=== PATIENT | female | born 2000 | race Caucasian/White ===

== ENCOUNTER 2024-06-23 18:14 | Emergency (ER) | payer OTHER, SELFPAY ==
--- NOTE | ~2024-06-23 | XR_ITS ---
CLINICAL HISTORY: chest pain 2 view chest x-ray Comparison: None Findings: No consolidation or effusion. Heart size is normal. No acute fracture. IMPRESSION: 1. No acute findings. This document has been electronically signed by: Cristin Kate MD on 06/23/2024 20:19:24
[2024-06-23 18:37] VITALS: BP 123/74; PULSE 65; RESP 18; TEMP 36.5; O2SAT 100; BMI 44.8
--- NOTE | 2024-06-23 18:37 | ED_ITS ---
HPI - General Adult General Chief complaint: Upper Respiratory Symptoms Stated complaint: flu symptoms Time Seen by Provider: 06/23/24 22:42 Source: patient Limitations: no limitations History of Present Illness ED Provider: Nahomy Reynolds PA-C HPI narrative: 24-year-old female with a history of asthma presents with cough and cold symptoms for weeks. Patient states her symptoms have progressed over the past few days. Associated subjective fever, chills, dizziness, headache, dry repetitive cough with wheeze and nasal congestion. Patient denies sick contacts with similar symptoms. Related Data Previous Rx's ?Medication ?Instructions ?Recorded albuterol sulfate 90 mcg/actuation 2 puff inhalation Q4-6H PRN 06/24/24 aerosol inhaler shortness of breath or wheezing #8.5 grams prednisone 20 mg tablet 40 mg (2 x 20 mg) PO DAILY #8 tabs 06/24/24 Allergies Allergy/AdvReac Type Severity Reaction Status Date / Time No Known Allergies Allergy Verified 06/23/24 18:39 Review of Systems 2 Review of Systems: Yes all other systems are reviewed and are negative Constitutional: Constitutional: Reports chills, Reports fatigue and Reports fever(s) ENT: Reports nasal congestion Cardiovascular: Cardiovascular: Reports chest pain and Reports dyspnea Respiratory: Respiratory: Reports cough, Reports dyspnea and Reports wheezing Endocrine: Endocrine: Reports fatigue Allergic/Immunologic: Allergic/Immunologic: Reports wheezing PMFSH Past Medical History Attestation statement: The following information was validated with the patient. Social History Social History Smoked in Last 30 Days: No Use of substances other than those prescribed or required for medical reasons: No Advance Directives: No Advance Directives Information Provided: No Do you have a plan to hurt others: No Plan Patient : No Physical Exam ED Vital Signs: Vital Signs - 24 hr 06/23/24 18:37 06/23/24 23:03 06/23/24 23:04 Temperature 97.7 F 98.3 F Pulse Rate 65 48 L 49 L Respiratory Rate 18 16 22 H Blood Pressure 123/74 136/97 H Pulse Oximetry 100 99 Oxygen Delivery Method Room Air Room Air BMI result Body Mass Index 44.8 Const Other: Alert Orientation/consciousness: patient oriented x3 Resp Other: Expiratory wheezes noted posterior pascal Cardio Other: Normal peripheral perfusion Skin Other: Warm dry no rash Neuro General: patient oriented x3, no focal motor deficits and CN's II-XI intact bilaterally Psych Other: Calm cooperative Course Course Course Narrative: RME performed by Jami Richter PA-C. Patient is a 24 year old assigned female at presenting to the emergency department with a cough and chest tightness. Detailed physical exam and review of systems are deferred to the day treatment clinician/art therapist. EKG, labs, imaging, and swabs ordered. Patient placed back in the waiting room pending room availability and results. Reevaluation(s) Reevaluation #1: Wheezing resolved after a neb Medications Administered Discontinued Medications Generic Name Dose Route Start Last Admin Trade Name Freq PRN Reason Stop Dose Admin Albuterol Sulfate 2.5 mg/ 0 mg 06/23/24 23:04 06/23/24 23:08 Albuterol/Ipratropium 3 ml INHALE 06/23/24 23:05 1 dose ONCE ONE Administration Prednisone 40 mg 06/23/24 22:58 06/23/24 23:44 Prednisone 20 Mg Tablet PO 06/23/24 22:59 40 mg ONCE ONE Administration Medical Decision Making Medical Decision Making [facility] Narrative: 24-year-old female with a history of asthma presents with cough and cold symptoms for weeks. Patient states her symptoms have progressed over the past few days. Associated subjective fever, chills, dizziness, headache, dry repetitive cough with wheeze and nasal congestion. Patient denies sick contacts with similar symptoms. Problem: Asthma History: Per patient I have considered the following differential diagnoses: Asthma exacerbation, viral syndrome, bronchitis, pneumonia Plan: Patient here with numerous complaints that are viral related. Screening labs including viral panel and chest x-ray were obtained from triage. Thus far everything is negative. We will treat the patient for an asthma exacerbation. Not abuse tobacco, she is not around any smokers, she does not require antibiotic therapy for a secondary bronchitis. I have independently reviewed the following tests: Labs: No leukocytosis, not anemic, viral panel negative, trop negative EKG: Normal sinus rhythm, rate 55, no ischemic changes no ectopy Chest x-ray:indings: No consolidation or effusion. Heart size is normal. No acute fracture. IMPRESSION: 1. No acute findings. This document has been electronically signed by: Cristin Kate MD on 06/23/2024 20:19:24 Lab Data 06/23/24 18:55 06/23/24 18:55 Labs: Lab Results 06/23/24 06/23/24 Range/Units 18:55 23:07 WBC 8.9 (4.8-10.8) X10*3/uL RBC 4.59 (4.20-5.50) X10*6/uL Hgb 13.3 (12.0-16.0) g/dl Hct 40.3 (37.0-47.0) % MCV 87.8 (80.0-98.0) fL MCH 29.0 (27.0-33.0) pg MCHC 33.0 (31.0-35.0) g/dl RDW 13.0 (11.0-16.0) % Plt Count 171 (160-400) X10*3/uL MPV 12.7 H (9.4-12.3) fL Immature Gran % (Auto) 0.3 (0.0-0.4) % Neut % (Auto) 68.2 (45-73) % Lymph % (Auto) 24.1 (20-40) % [place] % (Auto) 4.7 (2-11) % Eos % (Auto) 2.4 (0-4) % Baso % (Auto) 0.3 (0-2) % Lymph # (Auto) 2.2 (1.2-4.9) X10*3/uL [place] # (Auto) 0.4 (0.1-1.2) X10*3/uL Eos # (Auto) 0.2 (0.0-0.4) X10*3/uL Baso # (Auto) 0.0 (0.0-0.2) X10*3/uL Abs Immat Gran (auto) 0.03 (0.00-0.03) X10*3/uL Absolute Neuts (auto) 6.1 (2.0-8.3) x10*3/uL Absolute Nucleated RBC 0.000 (0.0-0.012) X10*3/uL Nucleated RBC % (auto) 0.0 (0.0-0.2) /100WBC Sodium 137 (135-145) mmol/L Potassium 3.7 (3.3-5.1) mmol/L Chloride 110 H (96-108) mmol/L Carbon Dioxide 23 (22-29) mmol/L Anion Gap 8 L (12-20) BUN 9 (9-16) mg/dL Creatinine 0.75 (0.5-1.4) mg/dL Estim Creat Clear Calc 134.8 Estimated GFR > 60 Random Glucose 92 (60-115) mg/dL Calcium 8.7 (8.4-10.2) mg/dL Magnesium 2.1 (1.6-2.6) mg/dL Total Bilirubin 0.3 (0.0-1.0) mg/dL AST 18 (5-31) U/L ALT 23 (0-31) U/L Alkaline Phosphatase 86 (39-117) U/L Troponin I High Sens 3.5 2.8 (<3.5-17.0) ng/L Total Protein 8.0 (6.5-8.0) g/dL Albumin 4.2 (3.5-5.0) g/dL Beta HCG, Quant < 2 mIU/mL Urine Color Yellow Urine Appearance Clear Urine pH 6.0 (5.0-9.0) Ur Specific [place] <= 1.005 (1.005-1.025) Urine Protein Negative (Neg-Trace) mg/dL Urine Glucose (UA) Negative (Negative) mg/dL Urine Ketones Negative (Negative) mg/dL Urine Blood Negative (Negative) Urine Nitrite Negative (Negative) Ur Leukocyte Esterase Trace H (Negative) Urine RBC 0-2 (0-2) /HPF Urine WBC 0-5 (0-5) /HPF Ur Squamous Epith Cells 3-5 (0-2) /HPF Urine Bacteria Trace (None Seen) Hyaline Casts 0-2 (0-2) /LPF Influenza Type A (PCR) NEGATIVE (Negative) Influenza Type B (PCR) NEGATIVE (Negative) RSV RNA Qual (PCR) NEGATIVE (Negative) SARS-CoV-2 RNA (RT-PCR) NEGATIVE (Negative) Discharge Plan Discharge Clinical Impression: Viral infection, Asthma exacerbation Patient Disposition: Home, Self-Care Instructions: Asthma (ED), Viral Syndrome (ED) Additional Instructions: You are being treated for an asthma exacerbation induced by an underlying respiratory virus. See home care instructions. All of your screening labs including a viral panel were negative, you do not have pneumonia on your chest x-ray was clear. Use the albuterol as directed. Take the steroid as directed. Follow up with your primary care provider next week as needed. Prescriptions: New albuterol sulfate 90 mcg/actuation HFA aerosol inhaler 2 puff inhalation Q4-6H PRN (Reason: shortness of breath or wheezing) Qty: 8.5 0RF prednisone 20 mg tablet 40 mg PO DAILY Qty: 8 0RF Print Language: Burkinan
--- NOTE | 2024-06-23 18:38 | ECG_ITS ---
Test Reason : CHEST PAIN Blood Pressure : */* mmHG Vent. Rate : 55 BPM Atrial Rate : 55 BPM P-R Int : 130 ms QRS Dur : 86 ms QT Int : 412 ms P-R-T Axes : 37 33 22 degrees QTcB Int : 394 ms Sinus bradycardia Otherwise normal ECG No previous ECGs available Referred By: Jami Richter Electronically Signed By: LEORA MARAVILLA
[2024-06-23 18:59] LABS: MANUAL DIFF FLAG NO
[2024-06-23 19:04] LABS: Appearance Urine Clear; Color Urine Yellow; Glucose Urine UA Negative (Negative); Leukocyte Esterase Urine Trace (Negative); Nitrite Urine Negative (Negative); Specific Gravity - Urine <= 1.005 (1.005-1.025); UMIC TRIGGER UACC YES; Urine Blood Negative (Negative); Urine Ketones Negative (Negative); Urine Protein Negative (Neg-Trace)
[2024-06-23 19:06] LABS: Basophils Percent Auto 0.3 % (0-2); Eosinophils Absolute Auto 0.2 X10*3/uL (0.0-0.4); Eosinophils Percent Auto 2.4 % (0-4); Hematocrit 40.3 % (37.0-47.0); Hemoglobin 13.3 g/dl (12.0-16.0); Imm Gran Abs Auto 0.03 X10*3/uL (0.00-0.03); Imm Gran Pct Auto 0.3 % (0.0-0.4); Lymphocytes Absolute Auto 2.2 X10*3/uL (1.2-4.9); Lymphocytes Percent Auto 24.1 % (20-40); Mean Corpuscular Volume 87.8 fL (80.0-98.0); Mean Platelet Volume 12.7 fL (9.4-12.3); Monocytes Absolute Auto 0.4 X10*3/uL (0.1-1.2); Monocytes Percent Auto 4.7 % (2-11); Neutrophils Absolute Auto 6.1 x10*3/uL (2.0-8.3); Neutrophils Percent Auto 68.2 % (45-73); Platelet Count 171 X10*3/uL (160-400); Red Blood Count 4.59 X10*6/uL (4.20-5.50); White Blood Count 8.9 X10*3/uL (4.8-10.8)
[2024-06-23 19:09] LABS: Bacteria Urine Trace (None Seen); Hyaline Casts Urine 0-2 /LPF (0-2); RBC Urine 0-2 /HPF (0-2); WBC Urine 0-5 /HPF (0-5)
[2024-06-23 19:23] LABS: Alanine Aminotransferase 23 U/L (0-31); Albumin Level 4.2 g/dL (3.5-5.0); Alkaline Phosphatase 86 U/L (39-117); Anion Gap 8 (12-20); Aspartate Amino Transferase 18 U/L (5-31); Bilirubin Total 0.3 mg/dL (0.0-1.0); Blood Urea Nitrogen 9 mg/dL (9-16); Calcium 8.7 mg/dL (8.4-10.2); Carbon Dioxide 23 mmol/L (22-29); Chloride 110 mmol/L (96-108); Creatinine Clr Calc Pharmacy 134.8; Estimated Glomerular Filt Rate > 60; Glucose Random 92 mg/dL (60-115); Magnesium 2.1 mg/dL (1.6-2.6); Potassium 3.7 mmol/L (3.3-5.1); Sodium 137 mmol/L (135-145)
[2024-06-23 19:24] LABS: Troponin-I High Sensitivity 3.5 ng/L (<3.5-17.0)
[2024-06-23 19:25] LABS: HCG Quantitative < 2 mIU/mL
[2024-06-23 19:40] LABS: Influenza A PCR NEGATIVE (Negative); Influenza B PCR NEGATIVE (Negative); Resp Syncy Virus RNA Qual PCR NEGATIVE (Negative); SARS COV2 PCR INHOUSE NEGATIVE (Negative)
[2024-06-23 23:03] VITALS: BP 136/97; PULSE 48; RESP 16; TEMP 36.8; O2SAT 99
[2024-06-23 23:04] VITALS: PULSE 49; RESP 22; O2SAT 100
[2024-06-23] MEDS: Albuterol Sulfate 2.5 MG, Albuterol/Iprat 2.5/0.5MG 3 ML 3 ML INHALE (23:08)
--- NOTE | 2024-06-23 23:08 | MHC.EDTECH ---
This pct assumed care of Patient at 2230 ,Trop drawn and sent to lab ,vitals taken .
[2024-06-23 23:32] LABS: Troponin-I High Sensitivity 2.8 ng/L (<3.5-17.0)
[2024-06-23] MEDS: predniSONE 20 MG TABLET 40 MG PO (23:44)
[2024-06-24 00:53] VITALS: BP 136/97; PULSE 49; RESP 22; TEMP 36.8; O2SAT 98
== END 2024-06-24 00:30 | disposition home or self-care (01) ==
PROVIDERS: Physician Assistant Medical; Emergency Provider Emergency Medicine
DX: B34.9 Viral infection, unspecified (principal); J45.901 Unspecified asthma with (acute) exacerbation; Z03.818 Encounter for observation for suspected exposure to other biological agents ruled out
CPT/HCPCS: 0241U; 36415; 71046; 80053; 81001; 81003; 83735; 84484; 84702; 85025; 93005; 99284; 99285

== ENCOUNTER → 2024-06-23 18:38 | Outpatient (BNV) | payer MEDICAID, SELFPAY | PROVIDERS: Visit Provider Student in an Organized Health Care Education/Training Program | DX: R07.9 Chest pain, unspecified (principal) | CPT/HCPCS: 71046 ==

== ENCOUNTER → 2024-06-23 18:38 | Outpatient (BNV) | payer OTHER, SELFPAY | PROVIDERS: Emergency Provider Emergency Medicine; Visit Provider Internal Medicine | DX: R00.1 Bradycardia, unspecified (principal) | CPT/HCPCS: 93010 ==

== ENCOUNTER 2024-08-12 15:20 | Emergency (ER) | payer OTHER, SELFPAY ==
--- NOTE | ~2024-08-12 | XR_ITS ---
CLINICAL HISTORY: pain 4 view left knee Comparison: None Findings: No fractures or dislocations. No significant loss of joint space, osteophytes, or erosions. No joint effusion. No radiopaque foreign body. IMPRESSION: 1. No acute findings. This document has been electronically signed by: Doug Hinojosa MD on 08/12/2024 19:39:32
--- NOTE | ~2024-08-12 | XR_ITS ---
CLINICAL HISTORY: pain 1 view chest x-ray Comparison: CR - XR CHEST 2V - 06/23/24 19:03 EST Findings: No consolidation or effusion. Normal size heart. No acute fracture. IMPRESSION: 1. No acute findings. This document has been electronically signed by: Rocio Diamond MD on 08/12/2024 18:33:16
--- NOTE | 2024-08-12 15:23 | ECG_ITS ---
Test Reason : cp Blood Pressure : */* mmHG Vent. Rate : 75 BPM Atrial Rate : 75 BPM P-R Int : 122 ms QRS Dur : 80 ms QT Int : 374 ms P-R-T Axes : 35 49 30 degrees QTcB Int : 417 ms Normal sinus rhythm with sinus arrhythmia Normal ECG When compared with ECG of 23-Jun-2024 18:47, No significant change was found Referred By: Generic ED Physician Electronically Signed By: Vinnie Coulter
[2024-08-12 15:37] VITALS: BP 138/92; PULSE 73; RESP 20; TEMP 36.2; O2SAT 98; BMI 40.9
--- NOTE | 2024-08-12 15:41 | ED_ITS ---
HPI - General Adult General Chief complaint: Chest Pain Stated complaint: R sided chest pain/R arm feels heavy Time Seen by Provider: 08/12/24 18:51 Source: patient Mode of arrival: ambulatory Limitations: no limitations History of Present Illness ED Provider: DR. Naylor HPI narrative: 24-year-old female came in for multiple complaints assessment. Right-sided chest pain that has been constant for 4 days, no radiation, no clear aggravating factor, no clear relieving factor, no other associated symptoms, no SOB, no recent travel, no lower extremity swelling or tenderness, no family history of heart disease at young age, no sudden runs in the family, no history of PE or DVT. No trauma or injury to the chest. Patient also is complaining of left knee pain that is been on and off many years, no recent trauma to the knee, patient is able to ambulate fine in the emergency department. Complaining of many years epigastric burning pain that worsening with food, no nausea, no vomiting, normal bowel movement, no blood in the stool. Patient was supposed to have upper endoscopy but I did not make the appointment. Currently not taking PPI or medication for her stomach. Related Data Previous Rx's ?Medication ?Instructions ?Recorded albuterol sulfate 90 mcg/actuation 2 puff inhalation Q4-6H PRN 06/24/24 aerosol inhaler shortness of breath or wheezing #8.5 grams prednisone 20 mg tablet 40 mg (2 x 20 mg) PO DAILY #8 tabs 06/24/24 omeprazole 40 mg capsule,delayed 40 mg PO DAILY #14 caps 08/12/24 release Allergies Allergy/AdvReac Type Severity Reaction Status Date / Time No Known Allergies Allergy Verified 08/12/24 15:42 Review of Systems 2 Review of Systems: All other systems are reviewed and are negative Constitutional: Reports as per HPI and Reports no additional constitutional complaints Eyes: Reports as per HPI and Reports no additional eye complaints Reports system reviewed and no additional complaints, except as documented Cardiovascular: Reports as per HPI and Reports no additional cardiovascular complaints Respiratory: Reports as per HPI and Reports no additional respiratory complaints Gastrointestinal: Reports as per HPI and Reports no additional gastrointestinal complaints Genitourinary: Reports no additional female genitourinary complaints Musculoskeletal: Reports no additional musculoskeletal complaints Skin/Breast: Reports system reviewed and no additional complaints, except as docu Psychiatric: Reports no additional psychiatric complaints Endocrine: Reports no additional endocrine complaints Hematologic/Lymphatic: Reports no additional hematologic/lymphatic complaints Allergic/Immunologic: Reports no additional allergic/immunologic complaints Reports system reviewed and no additional complaints, except as documented and Reports Abnormal speech present ON LICENSE OF [facility] Social History Social History Advance Directives: No Advance Directives Information Provided: No Do you have a plan to hurt others: No Plan Physical Exam ED Vital Signs: Vital Signs - 24 hr 08/12/24 15:37 08/12/24 19:21 Temperature 97.1 F 98.4 F Pulse Rate 73 59 Respiratory Rate 20 16 Blood Pressure 138/92 H 107/57 L Pulse Oximetry 98 97 Oxygen Delivery Method Room Air Room Air BMI result Body Mass Index 40.9 Vital signs have been reviewed and appear to be correct. Blood pressure elevated. Heart rate normal. Respiratory rate normal. Temperature normal. Oxygen saturation normal. Appearance: Alert. Oriented X3. No acute distress. Head: Normal external exam. Normocephalic. Atraumatic. No Nevarez signs noted. No raccoon eyes noted Eyes: PERRLA. EOMI. Conjunctiva and sclera normal. Eyelids normal. ENT: TM's Normal. Pharynx normal. Uvula midline. Moist mucous membranes. No trismus noted. No drooling noted. No muffled voice noted. Neck: Normal inspection. Neck supple. FROM. No adenopathy. Thyroid Normal. No meningeal signs. No neck mass noted. CVS: Normal heart rate and rhythm. Heart sound normal. No murmurs noted. Pulses normal throughout. Respiratory: No respiratory distress. Painless inspiration. Breath sounds normal. No wheezes/rales/rhonchi noted. Right-sided chest pain to palpation, deformity, no step-off. No accessory muscle usage noted or decreased air movement noted. Abdomen: Soft and nontender. Bowel sounds normal in all 4 quadrants. No distention noted. No organomegaly noted. No visible injury noted. Back: No CVA tenderness. Full range of motion noted. Skin: Skin warm and dry. Normal skin color. Normal skin turgor. No rashes/lesions/lacerations noted. Extremities: No lower extremity edema. Extremities exhibit normal range of motion. Extremities nontender. Neuro: Oriented X 3. Cranial nerve exam: II-XII are grossly intact No motor deficit. No sensory deficit. Reflexes normal. Course Course Course Narrative: This is a rapid medical exam performed by Nahomy Reynolds PA-C. The patient is a 24-year-old female with self reported hx of anxiety, bipolar, prediabetes, morbid obesity who presents with right-sided chest pain x3 days. Pain worse with movement and palpation of chest wall, the pain radiates to the arm. On exam the pain is reproducible with palpation. We will be screening basic labs, cardiac enzymes EKG and chest x-ray. The patient was stable and can return to the waiting room pending her full medical assessment. Reevaluation(s) Reevaluation #1: 24-year-old female came in with right-sided chest pain radiating to the right arm for 4 days, negative workup for ACS or pulmonary embolism, physical exam is consistent with chest wall pain. GERD patient was supposed to have upper endoscopy but she did not keep the appointment will will refer to GI clinic. Medical Decision Making Differential Diagnosis Differential Diagnoses: The differential diagnosis associated with the presentation includes ( ACS, pulmonary embolism, pleural effusion, pneumonia, left knee fracture, left knee strain , chest wall strain, GERD, gastritis.) Admission/Observation Consideration of admission/observation: Escalation of care including admission/observation considered Lab Data MDM Lab Attestation statement: I reviewed the patient's lab results. 08/12/24 15:45 08/12/24 15:45 Labs: Lab Results 08/12/24 08/12/24 Range/Units 15:45 19:26 WBC 10.9 H (4.8-10.8) X10*3/uL RBC 5.05 (4.20-5.50) X10*6/uL Hgb 14.6 (12.0-16.0) g/dl Hct 44.0 (37.0-47.0) % MCV 87.1 (80.0-98.0) fL MCH 28.9 (27.0-33.0) pg MCHC 33.2 (31.0-35.0) g/dl RDW 13.0 (11.0-16.0) % Plt Count 191 (160-400) X10*3/uL MPV 12.3 (9.4-12.3) fL Immature Gran % (Auto) 0.5 H (0.0-0.4) % Neut % (Auto) 72.0 (45-73) % Lymph % (Auto) 19.7 L (20-40) % [place] % (Auto) 5.6 (2-11) % Eos % (Auto) 1.6 (0-4) % Baso % (Auto) 0.6 (0-2) % Lymph # (Auto) 2.1 (1.2-4.9) X10*3/uL [place] # (Auto) 0.6 (0.1-1.2) X10*3/uL Eos # (Auto) 0.2 (0.0-0.4) X10*3/uL Baso # (Auto) 0.1 (0.0-0.2) X10*3/uL Abs Immat Gran (auto) 0.05 H (0.00-0.03) X10*3/uL Absolute Neuts (auto) 7.8 (2.0-8.3) x10*3/uL Absolute Nucleated RBC 0.000 (0.0-0.012) X10*3/uL Nucleated RBC % (auto) 0.0 (0.0-0.2) /100WBC D-Dimer High Sensitivty < 150 NG/ML Sodium 141 (135-145) mmol/L Potassium 4.3 (3.3-5.1) mmol/L Chloride 107 (96-108) mmol/L Carbon Dioxide 26 (22-29) mmol/L Anion Gap 12 (12-20) BUN 11 (9-16) mg/dL Creatinine 0.76 (0.5-1.4) mg/dL Estim Creat Clear Calc 131.0 Estimated GFR > 60 Random Glucose 96 (60-115) mg/dL Calcium 10.2 D (8.4-10.2) mg/dL Magnesium 2.3 (1.6-2.6) mg/dL Total Bilirubin 0.4 (0.0-1.0) mg/dL AST 28 (5-31) U/L ALT 38 H (0-31) U/L Alkaline Phosphatase 107 (39-117) U/L Troponin I High Sens < 2.7 < 2.7 (<3.5-17.0) ng/L Total Protein 9.1 H (6.5-8.0) g/dL Albumin 4.6 (3.5-5.0) g/dL Lipase 13 (8-78) U/L Beta HCG, Quant < 2 mIU/mL Independent Interpretation I performed an independent interpretation of an: Plain X-Ray ( Chest: Left knee: No acute findings.) Radiology Impression Discussion of test interpretation with radiology: I have reviewed the radiologist's reading. Discharge Plan Discharge Clinical Impression: Chest wall pain, Gastritis, Knee pain, left Patient Disposition: Still a Patient Instructions: Chest Wall Pain (ED) Prescriptions: New omeprazole 40 mg capsule,delayed release(DR/EC) 40 mg PO DAILY Qty: 14 0RF No Action albuterol sulfate 90 mcg/actuation HFA aerosol inhaler 2 puff inhalation Q4-6H PRN (Reason: shortness of breath or wheezing) Qty: 8.5 0RF prednisone 20 mg tablet 40 mg PO DAILY Qty: 8 0RF Referrals: Aleshia Ng MD [Physician] - Print Language: Iraqi
[2024-08-12 15:57] LABS: MANUAL DIFF FLAG NO
[2024-08-12 15:59] LABS: Basophils Absolute Auto 0.1 X10*3/uL (0.0-0.2); Basophils Percent Auto 0.6 % (0-2); Eosinophils Absolute Auto 0.2 X10*3/uL (0.0-0.4); Eosinophils Percent Auto 1.6 % (0-4); Hemoglobin 14.6 g/dl (12.0-16.0); Imm Gran Abs Auto 0.05 X10*3/uL (0.00-0.03); Imm Gran Pct Auto 0.5 % (0.0-0.4); Lymphocytes Absolute Auto 2.1 X10*3/uL (1.2-4.9); Lymphocytes Percent Auto 19.7 % (20-40); Mean Corpuscular HGB Conc 33.2 g/dl (31.0-35.0); Mean Corpuscular Hemoglobin 28.9 pg (27.0-33.0); Mean Corpuscular Volume 87.1 fL (80.0-98.0); Mean Platelet Volume 12.3 fL (9.4-12.3); Monocytes Absolute Auto 0.6 X10*3/uL (0.1-1.2); Monocytes Percent Auto 5.6 % (2-11); Neutrophils Absolute Auto 7.8 x10*3/uL (2.0-8.3); Platelet Count 191 X10*3/uL (160-400); Red Blood Count 5.05 X10*6/uL (4.20-5.50); White Blood Count 10.9 X10*3/uL (4.8-10.8)
[2024-08-12 16:19] LABS: Alanine Aminotransferase 38 U/L (0-31); Albumin Level 4.6 g/dL (3.5-5.0); Alkaline Phosphatase 107 U/L (39-117); Anion Gap 12 (12-20); Aspartate Amino Transferase 28 U/L (5-31); Bilirubin Total 0.4 mg/dL (0.0-1.0); Blood Urea Nitrogen 11 mg/dL (9-16); Calcium 10.2 mg/dL (8.4-10.2); Carbon Dioxide 26 mmol/L (22-29); Chloride 107 mmol/L (96-108); Estimated Glomerular Filt Rate > 60; Glucose Random 96 mg/dL (60-115); Lipase 13 U/L (8-78); Magnesium 2.3 mg/dL (1.6-2.6); Potassium 4.3 mmol/L (3.3-5.1); Sodium 141 mmol/L (135-145); Total Protein 9.1 g/dL (6.5-8.0)
[2024-08-12 16:20] LABS: Troponin-I High Sensitivity < 2.7 ng/L (<3.5-17.0)
[2024-08-12 16:21] LABS: HCG Quantitative < 2 mIU/mL
[2024-08-12 19:21] VITALS: BP 107/57; PULSE 59; RESP 16; TEMP 36.9; O2SAT 97
--- NOTE | 2024-08-12 19:28 | MHC.EDTECH ---
This pct assumed care of Patient at 1900 ,vitals taken ,Blood drawn and sent to lab .Call godoy within Pt reach .
[2024-08-12 19:53] LABS: Troponin-I High Sensitivity < 2.7 ng/L (<3.5-17.0)
[2024-08-12 20:13] LABS: D Dimer High Sensitivity < 150 NG/ML
[2024-08-12] MEDS: Ibuprofen 600 MG TABLET PO (20:47)
[2024-08-12 20:54] VITALS: BP 107/57; PULSE 59; RESP 16; TEMP 36.9; O2SAT 97
== END 2024-08-12 20:56 | disposition home or self-care (01) ==
PROVIDERS: Physician Assistant Medical; Emergency Provider Emergency Medicine
DX: R07.9 Chest pain, unspecified (principal); M25.562 Pain in left knee; K29.70 Gastritis, unspecified, without bleeding
CPT/HCPCS: 36415; 71045; 73564; 80053; 83690; 83735; 84484; 84702; 85025; 85379; 93005; 99283; 99285

== ENCOUNTER → 2024-08-12 15:23 | Outpatient (BNV) | payer OTHER, MEDICAID, SELFPAY | PROVIDERS: Emergency Provider Emergency Medicine; Visit Provider Internal Medicine Cardiovascular Disease | DX: R07.9 Chest pain, unspecified (principal) | CPT/HCPCS: 93010 ==

== ENCOUNTER → 2024-08-12 15:41 | Outpatient (BNV) | payer MEDICAID, SELFPAY | PROVIDERS: Visit Provider Radiology Diagnostic Radiology | DX: M25.562 Pain in left knee (principal); R07.9 Chest pain, unspecified | CPT/HCPCS: 71045; 73564 ==

== ENCOUNTER 2024-10-20 15:25 | Emergency (ER) | payer OTHER, SELFPAY ==
[2024-10-20] VITALS (10 sets, daily range): BP systolic 98–131; BP diastolic 50–77; PULSE 67–92; RESP 18–21; TEMP 36.6–37.9; O2SAT 98–100; BMI 36.6
--- NOTE | ~2024-10-20 | CT_ITS ---
CLINICAL HISTORY: Left CVA tenderness? pyelo CT abdomen and pelvis with contrast Comparison: None Findings: The lung bases are clear. Hepatomegaly with steatosis. Splenomegaly. Mildly distended gallbladder. Striated nephrograms in the left kidney concerning for pyelonephritis. No urolithiasis or hydronephrosis. Minimal wall thickening and enhancement along the left renal pelvis can be seen with infection. No bowel obstruction, pneumoperitoneum, or pneumatosis. Scattered colonic diverticulosis without diverticulitis or colitis. Normal appendix. Circumferential bladder wall thickening. Bilateral adnexal cysts. The bones are intact. IMPRESSION: 1. Striated nephrograms in the left kidney concerning for pyelonephritis. 2. Suspect cystitis. This document has been electronically signed by: Geraldo Lincoln MD on 10/20/2024 20:18:44
--- NOTE | ~2024-10-20 | XR_ITS ---
CLINICAL HISTORY: fever 2 view chest x-ray Comparison: CR - XR CHEST 1V - 08/12/24 17:34 EDT Findings: The lungs are clear. Normal size heart. No acute fracture. IMPRESSION: 1. No acute findings. This document has been electronically signed by: Geraldo Lincoln MD on 10/20/2024 20:12:06
--- NOTE | 2024-10-20 15:28 | ECG_ITS ---
Test Reason : CHEST PAIN Blood Pressure : */* mmHG Vent. Rate : 90 BPM Atrial Rate : 90 BPM P-R Int : 118 ms QRS Dur : 80 ms QT Int : 348 ms P-R-T Axes : 52 51 33 degrees QTcB Int : 425 ms Normal sinus rhythm Normal ECG When compared with ECG of 12-Aug-2024 15:23, No significant change was found Referred By: Alessio Escalera Electronically Signed By: Vinnie Coulter
--- NOTE | 2024-10-20 15:37 | ED_ITS ---
HPI - General Adult General Chief complaint: Arrhythmia/Palpitations Stated complaint: rapid heart beat, passing out, SOB Time Seen by Provider: 10/20/24 18:30 History of Present Illness ED Provider: Anaid TILLMAN narrative: The patient is a 24-year-old female who says that 3 days ago on Sunday she was making lasagna when she had a low episode. This seemed to come out of the blue. She says that she felt somewhat unwell over the weekend and had nausea and did not eat very much. Today she had another syncopal episode when she was in the shower. She says she did not injure herself during either of the syncopal episodes. She says that she also has some left-sided abdominal pain that radiates to her groin and some pain in her left lower back. She has not had any dysuria but she may have had some urinary frequency and urgency. She says that she did not feel well over the weekend and not take much by mouth. She says that she has had an occasional cough. When she coughs she feels some pain in the back of her head. Here in the emergency room she was found to have a temperature of 100.3 degrees. She says that she does not think that she had a fever prior to being here. Related Data Previous Rx's ?Medication ?Instructions ?Recorded albuterol sulfate 90 mcg/actuation 2 puff inhalation Q4-6H PRN 06/24/24 aerosol inhaler shortness of breath or wheezing #8.5 grams prednisone 20 mg tablet 40 mg (2 x 20 mg) PO DAILY #8 tabs 06/24/24 omeprazole 40 mg capsule,delayed 40 mg PO DAILY #14 caps 08/12/24 release cefpodoxime 200 mg tablet 200 mg PO BID 10 days #20 tabs 10/20/24 ibuprofen 400 mg tablet 400 mg PO Q6H PRN pain #14 tabs 10/20/24 ondansetron 4 mg disintegrating 4 mg PO Q6H PRN nausea and 10/20/24 tablet vomiting #10 tabs Allergies Allergy/AdvReac Type Severity Reaction Status Date / Time No Known Allergies Allergy Verified 10/20/24 15:38 Review of Systems 2 Review of Systems: Yes all other systems are reviewed and are negative Physical Exam ED Vital Signs: Vital Signs - 24 hr 10/20/24 15:32 10/20/24 16:07 10/20/24 18:09 Temperature 98 F 98.4 F Pulse Rate 92 84 80 Respiratory Rate 18 21 H Blood Pressure 120/77 131/75 98/50 L Pulse Oximetry 98 98 Oxygen Delivery Method Room Air Room Air 10/20/24 18:11 10/20/24 18:13 10/20/24 18:29 Temperature 100.3 F Pulse Rate 79 87 83 Respiratory Rate 20 Blood Pressure 115/71 124/74 124/74 Pulse Oximetry 100 Oxygen Delivery Method Room Air 10/20/24 19:54 10/20/24 22:25 10/20/24 23:02 Temperature 98.5 F 98.4 F 98.4 F Pulse Rate 67 68 68 Respiratory Rate 18 20 20 Blood Pressure 107/61 107/61 107/61 Pulse Oximetry 98 100 100 Oxygen Delivery Method Room Air Room Air Room Air BMI result Body Mass Index 36.6 Const Other: The patient is awake and alert with a normal mental status. She looks mildly unwell but not in acute distress. HENMT Other: Face is symmetrical, mucous membranes moist. Eyes General: appearance normal, both eyes and all related structures Neck Neck: Yes normal visual inspection and Yes full ROM Resp Effort & Inspection: normal respiratory effort Auscultation: clear to auscultation bilaterally Cardio Rate: regular rate Rhythm: regular rhythm Heart sounds: S1 normal heart sound present and S2 normal heart sound present GI Other: There was some generalized left-sided abdominal tenderness. No right-sided abdominal tenderness. Back/Spine/Pelvis Other: There was left-sided CVA percussion tenderness. Skin Other: Skin felt warm and dry. Neuro Other: The with a normal mental status. Cranial nerves are grossly intact. She moves her extremities symmetrically and appropriately. Extrem Other: No peripheral edema Course Course Course Narrative: RME, this is a rapid medical exam performed by Robe Escalera please refer to primary provider for complete H&P- 24 year old female presents for evaluation of headache, cough, and palpitations. She reports 2 syncopal episodes. Plan for cardiac workup Medications Administered Discontinued Medications Generic Name Dose Route Start Last Admin Trade Name Freq PRN Reason Stop Dose Admin Acetaminophen 975 mg 10/20/24 18:40 10/20/24 18:56 Acetaminophen 325 Mg Tablet PO 10/20/24 18:41 975 mg ONCE ONE Administration Ceftriaxone Sodium 1 gm 10/20/24 18:38 10/20/24 19:16 Ceftriaxone Sodium 1 Gm Vial IVPUSH 10/20/24 18:39 1 gm ONCE ONE Administration Ceftriaxone Sodium 1 gm 10/20/24 22:04 10/20/24 22:13 Ceftriaxone Sodium 1 Gm Vial IVPUSH 10/20/24 22:05 1 gm ONCE ONE Administration Sodium Chloride 1,000 mls @ 999 mls/hr 10/20/24 20:00 10/20/24 20:59 Ns IV 10/20/24 21:00 Infused .Q1H1M RONEN Infusion Sodium Chloride 1,000 mls @ 999 mls/hr 10/20/24 20:00 10/20/24 20:59 Ns IV 10/20/24 21:00 Infused .Q1H1M RONEN Infusion Lactated Ringer's 1,000 mls @ 999 mls/hr 10/20/24 21:45 10/20/24 23:01 Lr IV 10/20/24 22:45 Infused .Q1H1M RONEN Infusion Iohexol 100 ml 10/20/24 19:07 10/20/24 19:07 Iohexol 350 Mg/Ml 100 Ml Infus..Btl IV 10/20/24 19:08 85 ml ONCE ONE Administration Ketorolac Tromethamine 10 mg 10/20/24 18:40 10/20/24 18:53 Ketorolac Tromethamine 15 Mg/Ml Vial IVPUSH 10/20/24 18:41 10 mg ONCE ONE Administration Ondansetron HCl 4 mg 10/20/24 19:21 10/20/24 19:28 Ondansetron Hcl 4 Mg/2 Ml Vial IVPUSH 10/20/24 19:22 4 mg ONCE ONE Administration Medical Decision Making Medical Decision Making MDM Narrative: The patient is a 24-year-old female who presents with syncopal episode at home and left flank pain. She has an abnormal urinalysis suggestive of a UTI. She percussion tenderness on the left side. A CT pelvis shows findings consistent with left-sided pyelonephritis. The patient was treated with IV ceftriaxone. She was also given ketorolac and acetaminophen. She was given 3 liters of IV crystalloid. She tolerated oral intake in the emergency department. The patient's vital signs improved so that her heart rate was in the 60s. Clinically she looked well and tolerated oral intake. Although I think the patient has a significant left-sided pyelonephritis she ultimately looked quite well. She has a small child with her. The patient and I spoke about whether she should be hospitalized or not. She was not able to make any arrangements for child development specialist. Since she looks as well as she does and since she has a received 2 g of ceftriaxone and 3 L of crystalloid and was tolerating oral intake I ultimately felt that trial of outpatient management would not be unreasonable. The patient feels well enough to try. She is relatively new in the area and does not have a primary care doctor. She was given contact information for a variety of PCP offices that she may reach out to to try to establish a primary care doctor. Otherwise she will be discharged with a were cefpodoxime 200 mg b.i.d. times 10 days. She will also be prescribed ondansetron and ibuprofen. If she is significantly worse at any time she should return to the emergency room. Lab Data 10/20/24 15:48 10/20/24 15:48 Labs: Lab Results 10/20/24 10/20/24 10/20/24 Range/Units 15:48 16:36 19:18 WBC 16.0 H (4.8-10.8) X10*3/uL RBC 4.65 (4.20-5.50) X10*6/uL Hgb 13.5 (12.0-16.0) g/dl Hct 38.9 (37.0-47.0) % MCV 83.7 (80.0-98.0) fL MCH 29.0 (27.0-33.0) pg MCHC 34.7 (31.0-35.0) g/dl RDW 13.4 (11.0-16.0) % Plt Count 146 L (160-400) X10*3/uL MPV 12.0 (9.4-12.3) fL Immature Gran % (Auto) 0.4 (0.0-0.4) % Neut % (Auto) 80.3 H (45-73) % Lymph % (Auto) 9.8 L (20-40) % Stephens % (Auto) 9.1 (2-11) % Eos % (Auto) 0.1 (0-4) % Baso % (Auto) 0.3 (0-2) % Lymph # (Auto) 1.6 (1.2-4.9) X10*3/uL Stephens # (Auto) 1.5 H (0.1-1.2) X10*3/uL Eos # (Auto) 0.0 (0.0-0.4) X10*3/uL Baso # (Auto) 0.0 (0.0-0.2) X10*3/uL Abs Immat Gran (auto) 0.06 H (0.00-0.03) X10*3/uL Absolute Neuts (auto) 12.8 H (2.0-8.3) x10*3/uL Absolute Nucleated RBC 0.000 (0.0-0.012) X10*3/uL Nucleated RBC % (auto) 0.0 (0.0-0.2) /100WBC Sodium 135 (135-145) mmol/L Potassium 3.9 (3.3-5.1) mmol/L Chloride 103 (96-108) mmol/L Carbon Dioxide 21 L (22-29) mmol/L Anion Gap 15 (12-20) BUN 11 (9-16) mg/dL Creatinine 0.76 (0.5-1.4) mg/dL Estim Creat Clear Calc 118.5 Estimated GFR > 60 POC Glucose 102 (60-115) mg/dL Random Glucose 104 (60-115) mg/dL Lactic Acid 0.8 (0.5-2.0) mmol/L Calcium 9.6 (8.4-10.2) mg/dL Total Bilirubin 0.8 (0.0-1.0) mg/dL AST 21 (5-31) U/L ALT 33 H (0-31) U/L Alkaline Phosphatase 86 (39-117) U/L Troponin I High Sens < 2.7 (<3.5-17.0) ng/L C-Reactive Protein 22.02 H (< or = 0.50) mg/dL Total Protein 8.5 H (6.5-8.0) g/dL Albumin 4.7 (3.5-5.0) g/dL Lipase 12 (8-78) U/L TSH 1.50 (0.32-4.0) uIU/mL Beta HCG, Quant < 2 mIU/mL Urine Color Dark Yellow Urine Appearance Clear Urine pH 6.0 (5.0-9.0) Ur Specific [place] 1.020 (1.005-1.025) Urine Protein 30 (1+) H (Neg-Trace) mg/dL Urine Glucose (UA) Negative (Negative) mg/dL Urine Ketones Trace (Negative) mg/dL Urine Blood Small (1+) H (Negative) Urine Nitrite Positive H (Negative) Ur Leukocyte Esterase Moderate (2+) H (Negative) Urine RBC 6-10 H (0-2) /HPF Urine WBC 21-50 H (0-5) /HPF Ur Squamous Epith Cells 6-10 (0-2) /HPF Urine Bacteria 3+ (None Seen) Hyaline Casts 0-2 (0-2) /LPF Influenza Type A (PCR) NEGATIVE (Negative) Influenza Type B (PCR) NEGATIVE (Negative) RSV RNA Qual (PCR) NEGATIVE (Negative) SARS-CoV-2 RNA (RT-PCR) NEGATIVE (Negative) Critical Care Time Critical Care Time Critical Care Time: Yes Total Critical Care Time: 35 Attestation: The patient was critically ill with a high probability of imminent or life- threatening deterioration. ?I spent greater than 30 minutes of discontinuous time evaluating the patient, delivering critical care at the bedside, discussing evaluating data with consultants. ?Critical care time does not include time spent performing separately billable procedures or teaching. ?Time spent performing critical care with 35 minutes. Discharge Plan Discharge Clinical Impression: Pyelonephritis of left kidney Patient Disposition: Home, Self-Care Instructions: Kidney Infection (ED) Additional Instructions: You have a urinary tract infection which has a affected your left kidney. This kind of kidney infection is called pyelonephritis. You received IV antibiotics here tomorrow. I have sent a prescription for additional oral antibiotics which you may start tomorrow. The antibiotics you have received or long-lasting. You should therefore start your oral antibiotics on Sunday evening. I have also sent a prescription for a nausea medication, ondansetron, which you may use if you feel significantly nauseated. Please do your best to drink lot of fluids and keep yourself well hydrated. We have included contact information for local primary care doctor offices so that you can try to establish a new primary care doctor. If you feel significantly worse at any time please return to the emergency room. Prescriptions: New cefpodoxime 200 mg tablet 200 mg PO BID 10 Days Qty: 20 0RF Rx Instructions: must administer with a meal/food ondansetron 4 mg tablet,disintegrating 4 mg PO Q6H PRN (Reason: nausea and vomiting) Qty: 10 0RF ibuprofen 400 mg tablet 400 mg PO Q6H PRN (Reason: pain) Qty: 14 0RF No Action omeprazole 40 mg capsule,delayed release(DR/EC) 40 mg PO DAILY Qty: 14 0RF albuterol sulfate 90 mcg/actuation HFA aerosol inhaler 2 puff inhalation Q4-6H PRN (Reason: shortness of breath or wheezing) Qty: 8.5 0RF prednisone 20 mg tablet 40 mg PO DAILY Qty: 8 0RF Referrals: [facility], [facility] [Provider Group] [facility] Primary Care, [facility] [Provider Group] Carey Farias MD [Physician] - Stand Alone Forms: Work/School Release Interventions: ED Discharge Assessment Last Done: 10/20/24 23:02 Discharge Date/Time: 10/20/24 23:04 Print Language: [place]
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
[2024-10-20 15:54] LABS: MANUAL DIFF FLAG NO
[2024-10-20 15:56] LABS: Basophils Percent Auto 0.3 % (0-2); Eosinophils Percent Auto 0.1 % (0-4); Hematocrit 38.9 % (37.0-47.0); Hemoglobin 13.5 g/dl (12.0-16.0); Imm Gran Abs Auto 0.06 X10*3/uL (0.00-0.03); Imm Gran Pct Auto 0.4 % (0.0-0.4); Lymphocytes Absolute Auto 1.6 X10*3/uL (1.2-4.9); Lymphocytes Percent Auto 9.8 % (20-40); Mean Corpuscular HGB Conc 34.7 g/dl (31.0-35.0); Mean Corpuscular Volume 83.7 fL (80.0-98.0); Monocytes Absolute Auto 1.5 X10*3/uL (0.1-1.2); Monocytes Percent Auto 9.1 % (2-11); Neutrophils Absolute Auto 12.8 x10*3/uL (2.0-8.3); Neutrophils Percent Auto 80.3 % (45-73); Platelet Count 146 X10*3/uL (160-400); Red Blood Count 4.65 X10*6/uL (4.20-5.50); Red Cell Distribution Width 13.4 % (11.0-16.0)
[2024-10-20 15:57] LABS: Appearance Urine Clear; Color Urine Dark Yellow; Glucose Urine UA Negative (Negative); Leukocyte Esterase Urine Moderate (2+) (Negative); Nitrite Urine Positive (Negative); UMIC TRIGGER UACC YES; Urine Blood Small (1+) (Negative); Urine Ketones Trace mg/dL (Negative); Urine Protein 30 (1+) mg/dL (Neg-Trace)
[2024-10-20 16:02] LABS: Bacteria Urine 3+ (None Seen); Hyaline Casts Urine 0-2 /LPF (0-2); UACC Culture Trigger YES; WBC Urine 21-50 /HPF (0-5)
[2024-10-20 16:14] LABS: Alanine Aminotransferase 33 U/L (0-31); Albumin Level 4.7 g/dL (3.5-5.0); Alkaline Phosphatase 86 U/L (39-117); Anion Gap 15 (12-20); Aspartate Amino Transferase 21 U/L (5-31); Bilirubin Total 0.8 mg/dL (0.0-1.0); Blood Urea Nitrogen 11 mg/dL (9-16); Calcium 9.6 mg/dL (8.4-10.2); Carbon Dioxide 21 mmol/L (22-29); Chloride 103 mmol/L (96-108); Creatinine Clr Calc Pharmacy 118.5; Estimated Glomerular Filt Rate > 60; Glucose Random 104 mg/dL (60-115); Lipase 12 U/L (8-78); Potassium 3.9 mmol/L (3.3-5.1); Sodium 135 mmol/L (135-145); Total Protein 8.5 g/dL (6.5-8.0)
[2024-10-20 16:22] LABS: HCG Quantitative < 2 mIU/mL
[2024-10-20 16:24] LABS: Troponin-I High Sensitivity < 2.7 ng/L (<3.5-17.0)
[2024-10-20 16:35] LABS: Influenza A PCR NEGATIVE (Negative); Influenza B PCR NEGATIVE (Negative); Resp Syncy Virus RNA Qual PCR NEGATIVE (Negative); SARS COV2 PCR INHOUSE NEGATIVE (Negative)
[2024-10-20 16:40] LABS: Glucose, Whole Blood 102 mg/dL (60-115)
--- NOTE | 2024-10-20 18:06 | PC.NURSE ---
pt c/o dizziness on standing- pt to have orthostatic VS
[2024-10-20] MEDS: Ketorolac Tromethamine 15 MG/ML VIAL 10 MG IVPUSH (18:53)
[2024-10-20] MEDS: Acetaminophen 325 MG TABLET 975 MG PO (18:56)
[2024-10-20] MEDS: iohexoL 350 MG/ML 100 ML INFUS..BTL IV (19:07)
[2024-10-20] MEDS: cefTRIAXone sodium 1 GM VIAL IVPUSH ×2 (19:16→22:13)
[2024-10-20] MEDS: ondansetron HCL 4 MG/2 ML VIAL IVPUSH (19:28)
[2024-10-20 19:38] LABS: Lactic Acid 0.8 mmol/L (0.5-2.0)
[2024-10-20] MEDS: 0.9 % Sodium Chloride 1,000 ML 999 ML IV ×2 (19:50→19:51)
[2024-10-20 20:00] LABS: C Reactive Protein 22.02 mg/dL (< or = 0.50)
[2024-10-20] MEDS: Lactated Ringers 1,000 ML 999 ML IV (21:40)
--- NOTE | 2024-10-20 21:57 | PC.NURSE ---
pt found to have pyelo on CT- MD to bedside to discuss potential admission. Pt has a small child that has been with her for the duration of the ER visit. Pt sts that she has no one to watch the child. Pt attempted to reach someone who could potentially care for the child but was unsuccessful. t/w spoke w/ Cris Dias RN sup on duty. She says historically they have had admitted patients with children on the floors. The parent must still be able to provide care to the child. However, it would have to be cleared by the director if the hospitalist deems her appropriate for admission. MD Worrell notified via [employer] connect
== END 2024-10-20 23:04 | disposition home or self-care (01) ==
PROVIDERS: Physician Assistant; Emergency Provider Emergency Medicine
DX: N12 Tubulo-interstitial nephritis, not specified as acute or chronic (principal); M54.50 Low back pain, unspecified; R05.9 Cough, unspecified; R51.9 Headache, unspecified; R50.9 Fever, unspecified; Z03.818 Encounter for observation for suspected exposure to other biological agents ruled out
CPT/HCPCS: 0241U; 36415; 71046; 74177; 80053; 81001; 82947; 83605; 83690; 84443; 84484; 84702; 85025; 86140; 87040; 87086; 87088; 87186; 93005; 96361; 96374; 96375; 96376; 99284; 99285; J0696; J1885; J2405; J7120; Q9967

== ENCOUNTER → 2024-10-20 15:28 | Outpatient (BNV) | payer OTHER, SELFPAY | PROVIDERS: Emergency Provider Emergency Medicine; Visit Provider Internal Medicine Cardiovascular Disease | DX: R07.9 Chest pain, unspecified (principal) | CPT/HCPCS: 93010 ==

== ENCOUNTER → 2024-10-20 18:39 | Outpatient (BNV) | payer OTHER, SELFPAY | PROVIDERS: Emergency Provider Emergency Medicine; Visit Provider Radiology Diagnostic Radiology | DX: R16.2 Hepatomegaly with splenomegaly, not elsewhere classified (principal); R50.9 Fever, unspecified | CPT/HCPCS: 71046; 74177 ==

== ENCOUNTER 2024-11-17 18:01 | Emergency (ER) | payer OTHER, SELFPAY ==
--- NOTE | ~2024-11-17 | XR_ITS ---
CLINICAL HISTORY: SOB 2 view chest x-ray Comparison: CR - XR CHEST 2V - 10/20/24 19:13 EDT Findings: No consolidation or effusion. Heart size is normal. No acute fracture. IMPRESSION: 1. No acute findings. This document has been electronically signed by: Dk Carmona MD on 11/17/2024 18:53:09
[2024-11-17 18:06] VITALS: BP 124/66; PULSE 106; RESP 18; TEMP 37.2; O2SAT 98; BMI 33.3
--- NOTE | 2024-11-17 18:07 | ED_ITS ---
HPI - General Adult General Chief complaint: Dyspnea Stated complaint: Asthma Time Seen by Provider: 11/17/24 21:06 Source: patient Mode of arrival: ambulatory Limitations: no limitations History of Present Illness ED Provider: Dr. Sana Clinton HPI narrative: patient comes to the emergency room complaining of asthma exacerbation, headache, diffuse body aches. Patient states that a few days ago she had an asthma exacerbation which she had not had in years. Patient is 4-year-old daughter has a same viral syndrome symptoms. Patient denies nausea vomiting or diarrhea, no chest pain, no abdominal pain, no UTI symptoms. Related Data Previous Rx's ?Medication ?Instructions ?Recorded albuterol sulfate 90 mcg/actuation 2 puff inhalation Q 4-6H PRN 06/24/24 aerosol inhaler shortness of breath or wheez ing #8.5 grams prednisone 20 mg tablet 40 mg (2 x 20 mg) PO DAILY # 8 tabs 06/24/24 omeprazole 40 mg capsule,delayed 40 mg PO DAILY #14 ca ps 08/12/24 release cefpodoxime 200 mg tablet 200 mg PO BID 10 days #20 ta bs 10/20/24 ibuprofen 400 mg tablet 400 mg PO Q6H PRN pain #14 t abs 10/20/24 ondansetron 4 mg disintegrating 4 mg PO Q6H PRN nausea and 10/20/24 tablet vomiting #10 tabs acetaminophen 500 mg tablet 500 mg PO Q6H PRN fever or pain 11/17/24 #20 tabs albuterol sulfate 90 mcg/actuation 2 puff inhalation Q 4-6H PRN 11/17/24 aerosol inhaler (Ventolin HFA) shortness of breath or wheezing #8.5 grams ibuprofen 600 mg tablet 600 mg PO QID PRN fever or p ain 11/17/24 #20 tabs prednisone 50 mg tablet 50 mg PO DAILY #4 tabs 11/17 Allergies Allergy/AdvReac Type Severity Reaction Status Date / Time No Known Allergies Allergy Verified 11/17/24 18:07 Review of Systems 2 Review of Systems: Constitutional : No Weight loss, No Fever, No Chills, No Night Sweats, Complaining of fatigue and generalized malaise ENT/Mouth : No Hearing loss, No Ear Pain, No Nasal Congestion, No Sinus Pain, No Hoarseness, No sore throat, No Rhinorrhea, No Swallowing Difficulty Eyes: No Eye Pain, No Swelling, No Redness, No Foreign Body, No Discharge, No Vision Changes Cardiovascular : No Chest Pain, No SOB, No Dyspnea on Exertion, No Orthopnea, No Edema, No Palpitations Respiratory : complaining of cough, shortness of breath, states she has an asthma exacerbation couple of days ago Gastrointestinal : complaining of nausea vomiting x1,No Diarrhea, No Constipation, No abdominal Pain, No Hematochezia, No Melena Genitourinary : no irregular bleeding, No Dysuria, No Urinary Frequency, No Hematuria, No Urinary Incontinence, No Urgency, No Flank Pain, No Urinary Flow Changes, No Hesitancy Musculoskeletal : No joint pain, No Myalgias, No Joint Swelling Skin : No Skin Lesions, No rash Neuro : No Weakness, No Numbness, No Paresthesias, No Loss of Consciousness, No Dizziness, No Headache Psych : No Anxiety/Panic, No Depression, No SI/HI/AH/VH, No Social Issues, Heme/Lymph: No Bruising, No Bleeding,No Lymphadenopathy Endocrine : No Polyuria, No Polydipsia, No Temperature Intolerance [facility] Past Medical History Medical History Asthma Social History Social History Unable to assess alcohol history related to: Unknown Use of substances other than those prescribed or required for medical reasons: Unknown Advance Directives: No Advance Directives Information Provided: No Physical Exam ED Vital Signs: Vital Signs - 24 hr 11/17/24 18:06 11/17/24 22:00 11/17/24 22:10 Temperature 99.0 F 100.9 F H Pulse Rate 106 H 77 88 Respiratory Rate 18 12 18 Blood Pressure 124/66 105/60 Pulse Oximetry 98 96 Oxygen Delivery Method Room Air Room Air 11/17/24 23:15 Temperature Pulse Rate Respiratory Rate Blood Pressure Pulse Oximetry 97 Oxygen Delivery Method BMI result Body Mass Index 33.3 Const Other: Appearance: Alert. Oriented X3. No acute distress. Eyes: Pupils equal, round and reactive to light. ENT: Pharynx abscesses, mildly erythematous oropharynx Neck: Normal inspection. Neck supple. No lymph nodes noted. No crepitus CVS: Normal heart rate and rhythm. Pulses normal. Normal S1 and S2 Respiratory: No respiratory distress. patient has bilateral expiratory wheezing, fairly good air movement Abdomen: Soft and nontender. No rigidity. No distention. Skin: Skin warm and dry. Normal skin color. Normal skin turgor. Extremities: No lower extremity edema. No Lacerations. No Rash Neuro: Oriented X 3. No motor deficit. No sensory deficit. Moving all extremities. No slurred speech. CN 2 through 12 grossly intact Psych: calm, cooperative, normal affect Course Course Course Narrative: This is an RME: Additional HPI, ROS, PE not included below will be deferred to primary provider. RME assessment and note performed by: Amira Booker PA-C This is a 24-year-old female who presents emergency department with concerns of asthma exacerbation for a couple of days. Endorsing nausea, vomiting. Child is here with cough, URI. Lungs are clear to auscultation bilaterally. Will obtain labs, chest x-ray, viral swabs Plan: labs, chest x-ray, viral swabs Medications Administered Generic Name Dose Route Start Last Admin Trade Name Freq PRN Reason Stop Dose Admin Magnesium Sulfate 2 gm in 50 mls @ 25 mls/hr 11/17/24 21:44 11/17/24 21:52 Magnesium Sulfate/H2o IV 11/17/24 23:43 25 mls/hr ONCE ONE Administration Discontinued Medications Generic Name Dose Route Start Last Admin Trade Name Freq PRN Reason Stop Dose Admin Acetaminophen 975 mg 11/17/24 22:03 11/17/24 22:05 Acetaminophen 325 Mg Tablet PO 11/17/24 22:04 975 mg ONCE ONE Administration Albuterol Sulfate 2.5 mg 11/17/24 22:09 11/17/24 22:13 Albuterol Sulfate (0.083%) 2.5 Mg/3 Ml Vial.Neb INHALE 11/17/24 22:10 2.5 mg ONCE ONE Administration Methylprednisolone Sodium Succinate 125 mg 11/17/24 21:44 11/17/24 21:59 Methylprednisolone Sod Succ 125 Mg Vial IVPUSH 11/17/24 21:45 Not Given ONCE ONE Methylprednisolone Sodium Succinate 125 mg 11/17/24 22:00 11/17/24 22:05 Methylprednisolone Sod Succ 125 Mg/2 Ml Vial IVPUSH 11/17/24 22:01 125 mg ONCE ONE Administration Medical Decision Making Medical Decision Making [facility] Narrative: my interpretation of labs: No significant abnormality in patient's hematology, chemistry, LFTs, negative hCG, serology negative for influenza COVID and RSV chest x-ray negative for any acute pathology. Patient is wheezing, currently receiving IV Solu-Medrol, magnesium, neb tx per bronch protocol After the above-mentioned medications, patient feeling better. Lung exam: Clear, very minimal wheezing. Good air movement, oxygen saturation 94% on room air, patient was ambulated around the ED with no oxygen desaturation. Patient did have a fever of 100.9, patient received p.o. acetaminophen. I discussed with the patient that she likely has a viral infection that is triggering her asthma. Differential Diagnosis Differential Diagnoses: The differential diagnosis associated with the presentation includes ( viral URI, bronchitis, COVID, influenza, RSV) Admission/Observation Consideration of admission/observation: Escalation of care including admission/observation considered ( given patient's presentation physical exam, observation was considered) Lab Data MDM Lab Attestation statement: I reviewed the patient's lab results. 11/17/24 18:58 11/17/24 18:58 Labs: Lab Results 11/17/24 11/17/24 Range/Units 18:58 18:58 WBC 7.2 (4.8-10.8) X10*3/uL RBC 4.91 (4.20-5.50) X10*6/uL Hgb 14.3 (12.0-16.0) g/dl Hct 42.8 (37.0-47.0) % MCV 87.2 (80.0-98.0) fL MCH 29.1 (27.0-33.0) pg MCHC 33.4 (31.0-35.0) g/dl RDW 14.1 (11.0-16.0) % Plt Count 160 (160-400) X10*3/uL MPV 12.3 (9.4-12.3) fL Immature Gran % (Auto) 0.3 (0.0-0.4) % Neut % (Auto) 73.8 H (45-73) % Lymph % (Auto) 15.4 L (20-40) % Carroll % (Auto) 9.6 (2-11) % Eos % (Auto) 0.6 (0-4) % Baso % (Auto) 0.3 (0-2) % Lymph # (Auto) 1.1 L (1.2-4.9) X10*3/uL Carroll # (Auto) 0.7 (0.1-1.2) X10*3/uL Eos # (Auto) 0.0 (0.0-0.4) X10*3/uL Baso # (Auto) 0.0 (0.0-0.2) X10*3/uL Abs Immat Gran (auto) 0.02 (0.00-0.03) X10*3/uL Absolute Neuts (auto) 5.3 (2.0-8.3) x10*3/uL Absolute Nucleated RBC 0.000 (0.0-0.012) X10*3/uL Nucleated RBC % (auto) 0.0 (0.0-0.2) /100WBC Sodium 140 (135-145) mmol/L Potassium 3.9 (3.3-5.1) mmol/L Chloride 108 (96-108) mmol/L Carbon Dioxide 21 L (22-29) mmol/L Anion Gap 15 (12-20) BUN 9 (9-16) mg/dL Creatinine 0.79 (0.5-1.4) mg/dL Estim Creat Clear Calc 108.4 Estimated GFR > 60 Random Glucose 95 (60-115) mg/dL Calcium 10.0 (8.4-10.2) mg/dL Magnesium 2.1 (1.6-2.6) mg/dL Total Bilirubin 0.5 (0.0-1.0) mg/dL Direct Bilirubin 0.2 (0.0-0.5) mg/dL AST 34 H (5-31) U/L ALT 59 H (0-31) U/L Alkaline Phosphatase 91 (39-117) U/L Total Protein 8.6 H (6.5-8.0) g/dL Albumin 5.0 (3.5-5.0) g/dL Lipase 12 (8-78) U/L Beta HCG, Quant < 2 < 2 mIU/mL Influenza Type A (PCR) NEGATIVE (Negative) Influenza Type B (PCR) NEGATIVE (Negative) RSV RNA Qual (PCR) NEGATIVE (Negative) SARS-CoV-2 RNA (RT-PCR) NEGATIVE (Negative) Independent Interpretation I performed an independent interpretation of an: Plain X-Ray Radiology Impression Discussion of test interpretation with radiology: I have reviewed the radiologist's reading. Radiologist Impression: No consolidation or effusion. Heart size is normal. No acute fracture. IMPRESSION: 1. No acute findings Critical Care Time Critical Care Time Critical Care Time: Yes Total Critical Care Time: 35 Attestation: I have personally provided critical care time. Time includes review of lab data, radiology results, discussion with consultants, and monitoring for potential decompensation. Intervention performed as documented. Discharge Plan Discharge Clinical Impression: Asthma, Acute viral bronchitis Patient Disposition: Home, Self-Care Instructions: Asthma (ED), Acute Bronchitis (ED) Additional Instructions: Please follow-up with your primary care physician tomorrow. If you have any worsening or new symptoms, please return to the emergency room or call 911 Prescriptions: New prednisone 50 mg tablet 50 mg PO DAILY Qty: 4 0RF acetaminophen 500 mg tablet 500 mg PO Q6H PRN (Reason: fever or pain) Qty: 20 0RF ibuprofen 600 mg tablet 600 mg PO QID PRN (Reason: fever or pain) Qty: 20 0RF albuterol sulfate [Ventolin HFA] 90 mcg/actuation HFA aerosol inhaler 2 puff inhalation Q4-6H PRN (Reason: shortness of breath or wheezing) Qty: 8.5 0RF No Action omeprazole 40 mg capsule,delayed release(DR/EC) 40 mg PO DAILY Qty: 14 0RF cefpodoxime 200 mg tablet 200 mg PO BID 10 Days Qty: 20 0RF Rx Instructions: must administer with a meal/food ondansetron 4 mg tablet,disintegrating 4 mg PO Q6H PRN (Reason: nausea and vomiting) Qty: 10 0RF ibuprofen 400 mg tablet 400 mg PO Q6H PRN (Reason: pain) Qty: 14 0RF albuterol sulfate 90 mcg/actuation HFA aerosol inhaler 2 puff inhalation Q4-6H PRN (Reason: shortness of breath or wheezing) Qty: 8.5 0RF prednisone 20 mg tablet 40 mg PO DAILY Qty: 8 0RF Stand Alone Forms: Work/School Release Print Language: Arabic
[2024-11-17 19:04] LABS: MANUAL DIFF FLAG NO
[2024-11-17 19:18] LABS: Basophils Percent Auto 0.3 % (0-2); Eosinophils Percent Auto 0.6 % (0-4); Hematocrit 42.8 % (37.0-47.0); Hemoglobin 14.3 g/dl (12.0-16.0); Imm Gran Abs Auto 0.02 X10*3/uL (0.00-0.03); Imm Gran Pct Auto 0.3 % (0.0-0.4); Lymphocytes Absolute Auto 1.1 X10*3/uL (1.2-4.9); Lymphocytes Percent Auto 15.4 % (20-40); Mean Corpuscular HGB Conc 33.4 g/dl (31.0-35.0); Mean Corpuscular Hemoglobin 29.1 pg (27.0-33.0); Mean Corpuscular Volume 87.2 fL (80.0-98.0); Mean Platelet Volume 12.3 fL (9.4-12.3); Monocytes Absolute Auto 0.7 X10*3/uL (0.1-1.2); Monocytes Percent Auto 9.6 % (2-11); Neutrophils Absolute Auto 5.3 x10*3/uL (2.0-8.3); Neutrophils Percent Auto 73.8 % (45-73); Platelet Count 160 X10*3/uL (160-400); Red Blood Count 4.91 X10*6/uL (4.20-5.50); Red Cell Distribution Width 14.1 % (11.0-16.0); White Blood Count 7.2 X10*3/uL (4.8-10.8)
[2024-11-17 19:27] LABS: Alanine Aminotransferase 59 U/L (0-31); Alkaline Phosphatase 91 U/L (39-117); Anion Gap 15 (12-20); Aspartate Amino Transferase 34 U/L (5-31); Bilirubin Direct 0.2 mg/dL (0.0-0.5); Bilirubin Total 0.5 mg/dL (0.0-1.0); Blood Urea Nitrogen 9 mg/dL (9-16); Carbon Dioxide 21 mmol/L (22-29); Chloride 108 mmol/L (96-108); Creatinine Clr Calc Pharmacy 108.4; Estimated Glomerular Filt Rate > 60; Glucose Random 95 mg/dL (60-115); Lipase 12 U/L (8-78); Magnesium 2.1 mg/dL (1.6-2.6); Potassium 3.9 mmol/L (3.3-5.1); Sodium 140 mmol/L (135-145); Total Protein 8.6 g/dL (6.5-8.0)
[2024-11-17 19:30] LABS: HCG Quantitative < 2 mIU/mL
[2024-11-17 19:57] LABS: Influenza A PCR NEGATIVE (Negative); Influenza B PCR NEGATIVE (Negative); Resp Syncy Virus RNA Qual PCR NEGATIVE (Negative); SARS COV2 PCR INHOUSE NEGATIVE (Negative)
[2024-11-17] MEDS: Magnesium Sulfate/H2O 2 GM/50 ML PIGGYBACK IV (21:52)
--- NOTE | 2024-11-17 21:58 | PC.NURSE ---
This Nurse obtained 20 G IV access in Right AC, patient tolerated it well.Patient felt warm to touch rectal temp obtained temp was 100.9f. Patient medicated per Jul.
[2024-11-17 22:00] VITALS: BP 105/60; PULSE 77; RESP 12; TEMP 38.3; O2SAT 96
--- NOTE | 2024-11-17 22:00 | PC.NURSE ---
Provider Oz notified of PT temperature, new orders for Tylenol placed.
[2024-11-17] MEDS: methylPREDNISolone Sod Succ 125 MG/2 ML VIAL IVPUSH (22:05)
[2024-11-17] MEDS: Acetaminophen 325 MG TABLET 975 MG PO (22:05)
[2024-11-17 22:10] VITALS: PULSE 88; RESP 18; O2SAT 100
[2024-11-17] MEDS: Albuterol Sulfate (0.083%) 2.5 MG/3 ML VIAL.NEB INHALE (22:13)
--- NOTE | 2024-11-17 23:03 | MHC.EDTECH ---
@2300 helped the patient to the rest room, Per patient feeling very shaky after her breathing treatment.
[2024-11-17 23:15] VITALS: O2SAT 97
[2024-11-17 23:36] VITALS: BP 121/58; PULSE 79; RESP 12; TEMP 36.8; O2SAT 97
[2024-11-17 23:49] VITALS: BP 121/58; PULSE 79; RESP 12; TEMP 36.8; O2SAT 97
== END 2024-11-17 23:49 | disposition home or self-care (01) ==
PROVIDERS: Physician Assistant Medical; Emergency Provider Emergency Medicine
DX: J20.8 Acute bronchitis due to other specified organisms (principal); R06.02 Shortness of breath; R51.9 Headache, unspecified; J45.909 Unspecified asthma, uncomplicated; M79.10 Myalgia, unspecified site; Z03.818 Encounter for observation for suspected exposure to other biological agents ruled out
CPT/HCPCS: 0241U; 36415; 71046; 80048; 80076; 83690; 83735; 84702; 85025; 94640; 96365; 96366; 96375; 99284; 99285; J2919; J3475

== ENCOUNTER → 2024-11-17 18:07 | Outpatient (BNV) | payer OTHER, SELFPAY | PROVIDERS: Visit Provider Radiology Diagnostic Radiology | DX: R06.02 Shortness of breath (principal) | CPT/HCPCS: 71046 ==